=== PATIENT | female | born 1980 | race Caucasian/White ===

== ENCOUNTER 2016-11-10 17:58 | Emergency (ER) | payer BC ==
[~2016-11-10] VITALS: Ht 160 cm; Wt 85.6 kg
[~2016-11-10 17:58] MED LIST: OMEP40CA PO
[2016-11-10 18:04] VITALS: TEMP 37.8; Ht 160 cm; Wt 85.6 kg
--- NOTE | 2016-11-10 18:48 | EMERGENCY ROOM VISIT NOTE ---
History Report prepared by Orquidea: Curtis Lawrence Under the Supervision of: Dr. Ludin Karmer M.D. First contact with patient: 18:42 Chief Complaint: COUGH Stated Complaint: STUFFY, FEVER, DRAINAGE Nursing Triage Summary: per utility bill collector: pt c/o nasal congestion, cough, sinus pressure, watery eyes, bilateral ear pressure since last tuesday. pt states today cough is "wet and heavier." hx pneumonia. patient states she is concerned about getting pneumonia again History of Present Illness The patient is a 36 year old female who presents to the Emergency Room with complaints of a worsening illness that started around 4 days ago. She says that it initially started with nasal congestion, and then progressed to have a headache with bilateral ear pain and a dry cough. The cough has started to become more wet. She states that she has had a temperature ranging around 99.8 to 100. She has a previous history of pneumonia, and is worried that she is getting pneumonia again. Source of History: patient Onset: 4 days ago Position: other (global - illness) Timing: worsening Associated Symptoms: + headache, + cough Note: Associated symptoms: Bilateral ear pain, nasal congestion. Temperature ranging around 99.8 to 100. Review of Systems See HPI for pertinent positives & negatives. A total of 10 systems reviewed and were otherwise negative. Past Medical & Surgical Medical Problems: (1) ACUTE PANCREATITIS (2) CHOLELITH W CHOLECYS NEC (3) Elev Bl Pres W/O Hypertn (4) GERD (gastroesophageal reflux disease) (5) Pancreatitis Surgical Problems: (1) section (2) Cholecystectomy (3) [place] Teeth Removal Family History FH: diabetes mellitus FH: gallbladder disease FH: heart disease FH: hypertension Social History Smoking Status: Never Smoker Alcohol Use: none Drug Use: none Marital Status: Housing Status: lives with family Occupation Status: employed Current/Historical Medications Scheduled Albuterol Hfa (Ventolin Hfa), 2-4 PUFFS INH Q6H Azithromycin (Zithromax Z-Rehtt), 1 PKT PO UD Loratadine (Claritin), 10 MG PO DAILY Omeprazole (Prilosec), 40 MG PO DAILY Allergies Coded Allergies: Penicillins (Verified Allergy, Mild, RASH, 05/05/16) Physical Exam Vital Signs Date Time Temp Pulse Resp B/P (MAP) Pulse Ox O2 Delivery O2 Flow Rate FiO2 11/10/16 18:09 96 Room Air 11/10/16 18:04 37.8 122 20 160/86 96 Room Air Physical Exam GENERAL: Patient is a healthy-appearing well-nourished HEAD: Normocephalic atraumatic EYES: Ocular movements intact pupils equal and react to light OROPHARYNX mucous membranes are moist no exudates present no erythema or edema present NECK: Supple no nuchal rigidity CHEST: Good equal expansion LUNGS: Clear and equal to auscultation CARDIAC: Normal S1 and S2 ABDOMEN: Soft nontender no guarding BACK: No CVA tenderness EXTREMITIES: No pain upon palpation normal muscle strength in all groups no clubbing cyanosis or edema NEURO: Patient is following commands is answering questions appropriately. Alert and oriented x3 Cranial Nerves 2-12 grossly intact Medical Decision & Procedures ER Provider Diagnostic Interpretation: X-ray results as stated below per interpretation by me and the radiologist: CHEST ONE VIEW PORTABLE CLINICAL HISTORY: Cough COMPARISON STUDY: Chest radiograph May 05, 2016. FINDINGS: Lung volumes are normal. There is no pneumothorax or pleural effusion. There is no consolidation. Pulmonary vascularity is normal. Cardiomediastinal silhouette is normal. IMPRESSION: No acute cardiopulmonary findings. Electronically signed by: Adelfo Tamayo M.D. 11/10/2016 7:20 PM Dictated Date/Time: 11/10/2016 7:19 PM Medications Administered Medications (Trade) Dose Ordered Sig/Peyton Route Start Time Stop Time Status Last Admin Dose Admin Albuterol/ Ipratropium (Duoneb) 3 ml NOW STAT INH 11/10/16 18:55 11/10/16 18:59 DC 11/10/16 19:04 3 ML ED Course 1855: Ordered Duoneb 3 ml INH. Past medical records reviewed. The patient was evaluated in room C10. A complete history and physical examination was performed. Medical Decision Medication Reconciliation: I attest that I have personally reviewed the patient' s current medication list Resident Physician Supervision Note: I interviewed and examined the patient. Discussed with Dr. Robles and agree with findings and plan as documented in the note. Documented By: Ludin Kramer Impression Primary Impression: Acute bronchitis Scribe Attestation The scribe's documentation has been prepared under my direction and personally reviewed by me in its entirety. I confirm that the note above accurately reflects all work, treatment, procedures, and medical decision making performed by me. Departure Information Prescriptions Azithromycin (ZITHROMAX Z-RHETT) 250 Mg Tab 1 PKT PO UD for 5 Days, #6 TAB Prov: Juancarlos Robles MD 11/10/16 Albuterol Hfa (VENTOLIN HFA) 200 Puffs/11686 Mcg Aers 2-4 PUFFS INH Q6H, #1 INHALER Prov: Juancarlos Robles MD 11/10/16 Referrals Elvin Granados III, M.D. (PCP) Patient Instructions My [facility] Problem Qualifiers Primary Impression: Acute bronchitis Bronchitis organism: unspecified organism Qualified Codes: J20.9 - Acute bronchitis, unspecified
[2016-11-10] MEDS ORDERED: OMEP40CA41 PO (18:53)
[2016-11-10] MEDS ORDERED: CLR10 PO (18:53)
[2016-11-10] MEDS ORDERED: ALBUT/IPRATROP 3MG/0.5MG NEB 3 ML VIAL INH STA (18:55)
--- NOTE | 2016-11-10 19:21 | DIAGNOSTIC IMAGING REPORT ---
CHEST ONE VIEW PORTABLE CLINICAL HISTORY: Cough COMPARISON STUDY: Chest radiograph May 05, 2016. FINDINGS: Lung volumes are normal. There is no pneumothorax or pleural effusion. There is no consolidation. Pulmonary vascularity is normal. Cardiomediastinal silhouette is normal. IMPRESSION: No acute cardiopulmonary findings. Electronically signed by: Adelfo Tamayo M.D. 11/10/2016 7:20 PM Dictated Date/Time: 11/10/2016 7:19 PM
[2016-11-10] MEDS ORDERED: VNTHFA/IN INH (19:42)
[2016-11-10] MEDS ORDERED: AZITTAB PO (19:42)
--- NOTE | 2016-11-10 19:42 | EMERGENCY ROOM VISIT NOTE ---
History First contact with patient: 18:42 Chief Complaint: COUGH Stated Complaint: STUFFY, FEVER, DRAINAGE Nursing Triage Summary: per international specialist: pt c/o nasal congestion, cough, sinus pressure, watery eyes, bilateral ear pressure since last tuesday. pt states today cough is "wet and heavier." hx pneumonia. patient states she is concerned about getting pneumonia again History of Present Illness The patient is a 36 year old female who presents to the Emergency Room with complaints of cough and fever. Tuesday the patient began to have congestion, ear pain, and itchy eyes along with a dry cough. She initially attributed the symptoms to allergies although over the last few days the cough has become more wet and her other symptoms have began to resolve. She has also felt feverish and her temperatures today were recorded between 99.8 and 100.0. She denies any headache, vision changes, nausea, vomiting, chest pain, abdominal pain, or dysuria. Review of Systems See HPI for pertinent positives and negatives. A total of ten systems were reviewed and were otherwise negative. Past Medical/Surgical History Medical Problems: (1) ACUTE PANCREATITIS (2) CHOLELITH W CHOLECYS NEC (3) Elev Bl Pres W/O Hypertn (4) GERD (gastroesophageal reflux disease) (5) Pancreatitis Surgical Problems: (1) section (2) Cholecystectomy (3) [place] Teeth Removal Family History FH: diabetes mellitus FH: gallbladder disease FH: heart disease FH: hypertension Social History Smoking Status: Never Smoker Alcohol Use: none Drug Use: none Marital Status: Housing Status: lives with family Occupation Status: employed Current/Historical Medications Scheduled Loratadine (Claritin), 10 MG PO DAILY Omeprazole (Prilosec), 40 MG PO DAILY Allergies Coded Allergies: Penicillins (Verified Allergy, Mild, RASH, 05/05/16) Physical Exam Vital Signs Date Time Temp Pulse Resp B/P (MAP) Pulse Ox O2 Delivery O2 Flow Rate FiO2 11/10/16 18:09 96 Room Air 11/10/16 18:04 37.8 122 20 160/86 96 Room Air Physical Exam GENERAL: Awake, alert, well-appearing, in no distress HENT: Normocephalic, atraumatic. Oropharynx unremarkable. EYES: Normal conjunctiva. Sclera non-icteric. NECK: Supple. No nuchal rigidity. RESPIRATORY: Clear to auscultation. CARDIAC: Regular rate, normal rhythm. Extremities warm and well perfused. Pulses equal. ABDOMEN: Soft, non-distended. No tenderness to palpation. RECTAL: Deferred. MUSCULOSKELETAL: Chest examination reveals no tenderness. The back is symmetrical on inspection without obvious abnormality. There is no CVA tenderness to palpation. No joint edema. LOWER EXTREMITIES: Calves are equal size bilaterally and non-tender. No edema. No discoloration. NEURO: Normal sensorium. No sensory or motor deficits noted. SKIN: No rash or jaundice noted. Medical Decision & Procedures Medications Administered Medications (Trade) Dose Ordered Sig/Peyton Route Start Time Stop Time Status Last Admin Dose Admin Albuterol/ Ipratropium (Duoneb) 3 ml NOW STAT INH 11/10/16 18:55 11/10/16 18:59 DC 11/10/16 19:04 3 ML Medical Decision Patient is a 36 year old female that presents with a 5 days history of cough and URI symptoms Etiologies such as viral syndrome, otitis, pharyngitis, pneumonia, urinary tract infection, sepsis, bacteremia, meningitis, as well as others were entertained. Medications: Duoneb Nebulizer treatment Labs: Chest X-Ray Impression Primary Impression: Upper respiratory infection Patient is a 36 year old female that presents with a cough and fever - Chest X-Ray shows no acute cardiopulmonary findings - Patient showed moderate improvement with DuoNeb nebulizer treatment - Based on CXR results and clinical finding patient most likely experiencing symptoms from viral URI - Discharge home with course of Azithromycin and Inhaled Albuterol MDI Departure Information Dispostion Home / Self-Care Condition GOOD Prescriptions Azithromycin (ZITHROMAX Z-BALDO) 250 Mg Tab 1 PKT PO UD for 5 Days, #6 TAB Prov: Juancarlos Robles MD 11/10/16 Albuterol Hfa (VENTOLIN HFA) 200 Puffs/09920 Mcg Aers 2-4 PUFFS INH Q6H, #1 INHALER Prov: Juancarlos Robles MD 11/10/16 Referrals Elvin Granados III, M.D. (PCP) Patient Instructions My [facility] Problem Qualifiers Primary Impression: Upper respiratory infection URI type: unspecified viral URI Qualified Codes: J06.9 - Acute upper respiratory infection, unspecified; B97.89 - Other viral agents as the cause of diseases classified elsewhere
[2016-11-10 20:03] VITALS: BP 136/87; PULSE 104; O2SAT 98
== END 2016-11-10 20:04 | disposition home or self-care (01) ==
LOC: C.EDB 17:59 → C.EDC 20:04
DX: J06.9 Acute upper respiratory infection, unspecified (principal); B97.89 Other viral agents as the cause of diseases classified elsewhere; K21.9 Gastro-esophageal reflux disease without esophagitis; Z83.3 Family history of diabetes mellitus; Z83.79 Family history of other diseases of the digestive system; Z82.49 Family history of ischemic heart disease and other diseases of the circulatory system; Z79.899 Other long term (current) drug therapy